=== PATIENT | female | born 1995 | race Caucasian/White ===

== ENCOUNTER 2018-02-23 21:54 | Emergency (ER) | payer OTHER, SELFPAY ==
[2018-02-23 21:54] VITALS: BP 167/94; PULSE 92; RESP 18; TEMP 36.6; O2SAT 98; BMI 33.6
--- NOTE | 2018-02-23 22:08 | ED.VISSUMM ---
- ER Visit Summary Date of Service: 02/23/18 Chief Complaint: Left hand burn History of Present Illness: The patient is a 22 F who reports that at work she stuck her left hand into the steamer without thinking about it. She reports she has sharp pain 8 out of 10 in severity. It is worsened by movement and relieved by rest. She denies any paresthesias. She is right-hand dominant. Physical Examination: Vitals: Stable. Afebrile. General: Well-nourished and well-developed. Head: Normocephalic atraumatic. Neck: Supple, no lymphadenopathy. No JVD. Nontender. Cardiovascular: Regular rate and rhythm. No murmurs. Respiratory: No respiratory distress. Clear to auscultation bilaterally. Abdominal: Soft, nontender, nondistended, normal bowel sounds. No guarding, rebound, or peritoneal signs. Back: Nontender. Extremities: Exam of her left hand shows her to have first-degree sharma from the MCP joint distally of her second through fifth fingers. This is circumferential. There are no blisters at this time. Skin: Normal color, no rash. Neurologic: Alert and oriented ?3. Cranial nerves II through XII are intact. Normal strength and sensation. Psych: Normal affect. Emergency Department Course and Treatment: Patient given a dose of Zofran p.o. She is given morphine IM. She had the area cleansed and a dressing was placed. Treatment Plan: Patient will be discharged with [facility] for pain. Instructed to follow-up [facility] in 2 days for a wound check. I did have a discussion with her that as this heals she may require physical therapy to maintain her range of motion. Disposition: To home in improved and stable condition. Impression: 1. First-degree sharma left second to fifth fingers. This note was generated with [employer] dictation software. It may contain incorrect words, spelling, and punctuation that were not noted in review of the chart prior to signing ED Disposition - Plan for ED Patient: Disposition: Home or Assisted Living Chief Complaint: Burn Instructions: ED Burn Scald Prescriptions: Hydrocodone/Acetaminophen [[facility] 5-325 Tablet] 1 - 2 each PO 4X/DAY PRN PRN 5 Days #20 tablet PRN Reason: Pain Referrals: [facility] [GROUP OF PHYSICIANS] - 2 Days for wound check
--- NOTE | 2018-02-23 22:11 | ED.DCSUM_ITS ---
- ER Visit Summary Date of Service: 02/23/18 Chief Complaint: Left hand burn History of Present Illness: The patient is a 22 F who reports that at work she stuck her left hand into the steamer without thinking about it. She reports she has sharp pain 8 out of 10 in severity. It is worsened by movement and relieved by rest. She denies any paresthesias. She is right-hand dominant. Physical Examination: Vitals: Stable. Afebrile. General: Well-nourished and well-developed. Head: Normocephalic atraumatic. Neck: Supple, no lymphadenopathy. No JVD. Nontender. Cardiovascular: Regular rate and rhythm. No murmurs. Respiratory: No respiratory distress. Clear to auscultation bilaterally. Abdominal: Soft, nontender, nondistended, normal bowel sounds. No guarding, rebound, or peritoneal signs. Back: Nontender. Extremities: Exam of her left hand shows her to have first-degree sharma from the MCP joint distally of her second through fifth fingers. This is circumferential. There are no blisters at this time. Skin: Normal color, no rash. Neurologic: Alert and oriented ?3. Cranial nerves II through XII are intact. Normal strength and sensation. Psych: Normal affect. Emergency Department Course and Treatment: Patient given a dose of Zofran p.o. She is given morphine IM. She had the area cleansed and a dressing was placed. Treatment Plan: Patient will be discharged with [facility] for pain. Instructed to follow-up [facility] in 2 days for a wound check. I did have a discussion with her that as this heals she may require physical therapy to maintain her range of motion. Disposition: To home in improved and stable condition. Impression: 1. First-degree sharma left second to fifth fingers. This note was generated with [employer] dictation software. It may contain incorrect words, spelling, and punctuation that were not noted in review of the chart prior to signing ED Disposition - Plan for ED Patient: Disposition: Home or Assisted Living Chief Complaint: Burn Instructions: ED Burn Scald Prescriptions: Hydrocodone/Acetaminophen [[facility] 5-325 Tablet] 1 - 2 each PO 4X/DAY PRN PRN 5 Days #20 tablet PRN Reason: Pain Referrals: [facility] [GROUP OF PHYSICIANS] - 2 Days for wound check
[2018-02-23] MEDS: morphine 8 MG/ML Syringe IM (22:20)
[2018-02-23] MEDS: Ondansetron ODT 4 MG Tablet PO (22:20)
[2018-02-23] MEDS: HYDROcodone Bitartrate/Apap 5/325 Tablet PO (22:20)
[2018-02-23 22:43] VITALS: RESP 16
== END 2018-02-23 22:43 | disposition home or self-care (01) ==
LOC: ED 22:10
PROVIDERS: Emergency Provider Emergency Medicine; Family Provider Pediatrics; PCP Pediatrics
DX: T23.132A Burn of first degree of multiple left fingers (nail), not including thumb, initial encounter (principal); X13.1XXA Other contact with steam and other hot vapors, initial encounter; Y93.9 Activity, unspecified; Y92.9 Unspecified place or not applicable; Y99.0 Civilian activity done for income or pay
CPT/HCPCS: 96372; 99283